=== PATIENT | male | born 1960 | race Caucasian/White ===

== ENCOUNTER 2023-12-19 08:00 | Day surgery (SDC) | payer OTHER ==
--- NOTE | 2023-12-15 09:59 | NUR ---
PHONE CALL TO PT AT THIS TIME, NO ANSWER, LEFT MESSAGE WILL TRY AGAIN TODAY AT 14:00. PHONE NUMBER [phone]
--- NOTE | 2023-12-15 14:03 | NUR ---
phone call to pt at this time, no answer left message explaining that he could retunr call till 15:00 today. other mejia senior technical writer will try again on 12-16-23 ar [phone]
[~2023-12-19] VITALS: Ht 177.8 cm; Wt 86.4 kg
[~2023-12-19 08:00] MED LIST: CEFAZOLIN SODIUM 2 GM/20 ML SYR IV SCH; IBLOOD GLUCOSE TEST STRIP 1 EA TEST VI PRN; LACTATED RINGER'S 1,000 ML IV SCH; LIDOCAINE HCL 1% 5 ML SDV INJ ONE
[2023-12-19 08:22] VITALS: BP 179/89
[2023-12-19] MEDS ORDERED: TRAMADOL HCL 50 MG TAB PO PRN (09:15)
[2023-12-19] MEDS ORDERED: NALOXONE HCL 0.4 MG SYR IV PRN (09:15)
[2023-12-19] MEDS ORDERED: SODIUM CHLORIDE 0.9% 20 ML IV ONE ×2 (09:42→10:43)
[2023-12-19] MEDS ORDERED: TRAMADOL HCL50 MG PO (09:59)
[2023-12-19 10:15] VITALS: BP 180/118
--- NOTE | 2023-12-19 10:21 | NUR ---
12/19/23 Jose1 Moni Banks DISCHARGE INSTRUCTIONS ARE REVIEWED. PATIENT RETURNS TO DAY SURGERY TO GET DRESSED AND DISCHARGE. PATIENT VERBALIZES UNDERSTANDING. ICE PACK SENT WITH PATIENT.
[2023-12-19] MEDS ORDERED: Ropivacaine HCl 0.5% 30 ML VIAL ONE (10:43)
[2023-12-19] MEDS ORDERED: LIDOCAINE HCL 2% 5 ML SDV ONE (10:43)
--- NOTE | 2023-12-20 10:36 | OR ---
[facility] [address], [place] [address] Signed DATE OF OPERATION: 12/19/2023 SURGEON: Erin Shields MD PREOPERATIVE DIAGNOSIS: Epidermal inclusion cyst, left thumb. POSTOPERATIVE DIAGNOSIS: Epidermal inclusion cyst, left thumb. PROCEDURE PERFORMED: Excision of cyst, left thumb. ASSISTANT PROFESSOR OF EDUCATION: None. ANESTHESIA: Local. BLOOD LOSS: Minimal. TOURNIQUET TIME: 8 minutes. BRIEF HISTORY: Flavio is a 63-year-old gentleman with a large circular mass in the pad of his thumb after a splinter was caught in there. It continued to get bigger and was painful. Risks and benefits of the operative excision were discussed with him. He elected to proceed. DESCRIPTION OF PROCEDURE: Once consent was obtained, he was taken to the operating room. After adequate anesthesia, hand was prepped and draped in a standard sterile fashion finger tourniquet was applied and a 1 cm incision was made overlying the mass, this was carried through skin and subcutaneous tissue, and careful dissection circumferentially around the mass. It was then excised and opened, which showed white creamy substance in the anterior. The wound was copiously irrigated and all the cyst material was ascertained to be removed. The wound was then closed with 3-0 nylon and dressed with Adaptic, 4x8's, and gauze. He tolerated the procedure well. All sponge, needle, and Electronically Signed By: ERIN SHIELDS MD 12/20/23 1036 PATIENT NAME: FLAVIO ROSE OPERATIVE REPORT DATE OF : 58 REPORT #: [id number] PHYSICIAN: ERIN SHIELDS MD PCP: NO PRIMARY CARE PHYSICIAN REPORT IS CONFIDENTIAL AND NOT TO BE RELEASED WITHOUT AUTHORIZATION [address] [address] Signed instrument counts were correct. Erin Shields MD BA/ANGY /[id number] Copies: ~ Electronically Signed By: ERIN SHIELDS MD 12/20/23 1036 PATIENT NAME: FLAVIO ROSE OPERATIVE REPORT DATE OF : 58 REPORT #: [id number] PHYSICIAN: ERIN SHIELDS MD PCP: NO PRIMARY CARE PHYSICIAN REPORT IS CONFIDENTIAL AND NOT TO BE RELEASED WITHOUT AUTHORIZATION
== END 2023-12-19 10:16 | disposition home or self-care (01) ==
LOC: DS 08:00
PROVIDERS: ATTEND Specialist
PROC: 0HBGXZZ Excision of Left Hand Skin, External Approach (ICD-10-PCS; principal; 2023-12-19 09:30)
DX: L72.0 Epidermal cyst (principal); I10 Essential (primary) hypertension
CPT/HCPCS: 01810; J2001; J2795; J7121